=== PATIENT | female | born 1945 | race Caucasian/White ===

== ENCOUNTER 2024-03-08 19:06 | Inpatient (IN) ==
[2024-03-09 00:06] LABS: PO2 Arterial 83 mmHg (80-100)
[2024-03-09 00:08] LABS: PCO2 Arterial > 100 mmHg (35-45)
[2024-03-09] MEDS ORDERED: Rocuronium 50 mg VIAL 10 mg/ml 5 ml VIAL (50 mg) ONE (00:18)
[2024-03-09] MEDS ORDERED: Succinylcholine 200 mg VIAL 20 mg/ml 10 ml VIAL (200 mg) ONE (00:19)
[2024-03-09] MEDS ORDERED: Propofol 10 mg/ml 100 ML BTL 1,000 MG/100 ML BTL ONE (00:37)
[2024-03-09] MEDS: Propofol 10 mg/ml 100 ML BTL 1,000 MG/100 ML BTL IV SCH (00:50)
[2024-03-09] MEDS ORDERED: fentaNYL 100 mcg/2 ml 50 MCG/ML VIAL ONE (00:57)
[2024-03-09] MEDS ORDERED: Dextrose 50% Syringe 50 ml 25 GM/50 ML SYRINGE IV PUSH PRN (01:16)
[2024-03-09 01:19] LABS: Urine Benzodiazepine Screen None Detected (None Detect); Urine Cannabinoids Screen None Detected (None Detect); Urine Opiates Screen Presumptive Positive (None Detect)
[2024-03-09 01:26] LABS: Urine Appearance Clear; Urine Bilirubin Negative (Negative); Urine Blood Negative (Negative); Urine Color Yellow; Urine Glucose Negative (Negative); Urine Ketones Negative (Negative); Urine Nitrite Negative (Negative); Urine Protein 2+ (>=100 mg/dL) (Negative); Urine Specific Gravity 1.016 (1.002-1.030); Urine Urobilinogen Negative (Negative); Urine pH 5.5 (5.0-8.0)
[2024-03-09 01:36] LABS: Urine Bacteria Absent /HPF (Absent); Urine Red Blood Cell 3+(>10/hpf) /HPF (0-Trace); Urine Squamous Epithelial Cell Present /HPF (Absent); Urine White Blood Cell Trace(0-5/hpf) /HPF (0-Trace)
[2024-03-09] MEDS: fentaNYL 100 mcg/2 ml 50 MCG/ML VIAL IV SLOW PU PRN (02:29)
[2024-03-09 02:53] LABS: PCO2 Arterial 70 mmHg (35-45); PO2 Arterial 148 mmHg (80-100)
[2024-03-09] MEDS: Chlorhexidine MOUTHWASH 0.12% 15 ML UDC TOPICAL SCH (03:34)
[2024-03-09] MEDS ORDERED: Albuterol/Ipratropium NEB.SOL (2.5/0.5 MG) 3 ML NEB.SOLN INH PRN (03:35)
[2024-03-09] MEDS: Pantoprazole VIAL 40 MG VIAL IV SCH (04:49)
[2024-03-09] MEDS: Levothyroxine 100 MCG/5 ML VIAL IV SCH (04:49)
[2024-03-09 05:25] LABS: ABS Lymphocytes 1.1 10^3/uL (1.0-4.8); ABS Monocytes 0.8 10^3/uL (0.0-0.9); ABS Nucleated RBC 0.01 10^3/ul; Eosinophil % 0.1 %; Hematocrit 32.3 % (35-45); Hemoglobin 9.9 g/dL (11.5-14.3); Lymphocyte % 7.9 %; Mean Corpuscular Hemoglobin 28.6 pg (27-33); Mean Corpuscular Hgb Conc 30.8 g/dL (31-36); Mean Corpuscular Volume 92.7 fL (80-97); Mean Platelet Volume 7.6 fL (7.5-11.2); Platelet Count 262 10^3/uL (150-450); Red Blood Count 3.48 10^6/uL (3.63-4.92); Red Cell Distribution Width 15.2 % (12-17); White Blood Count 13.9 10^3/uL (3.8-11.8)
[2024-03-09 06:19] LABS: ALT 18 U/L (7-52); Albumin 3.2 g/dL (3.2-5.2); Albumin/Globulin Ratio 1.3 (1-3); Alkaline Phosphatase 61 U/L (35-149); Anion Gap 7 mmol/L (2-16); Blood Urea Nitrogen 45 mg/dL (6-24); CO2 Carbon Dioxide 35 mmol/L (22-32); Calcium 8.7 mg/dL (8.6-10.3); Chloride 102 mmol/L (101-111); Creatinine, Serum 1.97 mg/dL (0.51-0.95); Globulin 2.4 g/dL (2-4); Glucose 217 mg/dL (70-100); Magnesium 2.2 mg/dL (1.9-2.7); Sodium 144 mmol/L (135-145); Total Bilirubin 0.4 mg/dL (0.2-1.0); Total Protein 5.6 g/dL (6.4-8.9); eGFR CKD-EPI 25.7 (>60)
[2024-03-09 06:39] LABS: TSH Ultra Thyroid Stim Horm 2.61 mcIU/mL (0.34-5.60)
[2024-03-09] MEDS: Enoxaparin 40 MG/0.4 ML SYR SUBCUT SCH (09:07)
[2024-03-09] MEDS: levETIRAcetam 500 MG/100 ML IV SCH (09:08)
[2024-03-09] MEDS: Acetaminophen IV 1 GM/100ML 1,000 MG/100 ML BAG IV PRN (11:32)
[2024-03-09] MEDS: levETIRAcetam 1000MG IVPREMIX 1,000 MG/100 ML BAG IVPB ONE (14:03)
[2024-03-09 14:51] LABS: Potassium, Whole Blood 5.2 mmol/L (3.4-4.5)
[2024-03-09] MEDS: NS 0.9% 1000 ml BAG 1,000 ML IV ONE (17:24)
[2024-03-09] MEDS: levETIRAcetam IV 750 MG in NS 0.9% 100 ml BAG 100 ML IVPB SCH (20:39)
[2024-03-09] MEDS ORDERED: Enoxaparin 40 MG/0.4 ML SYR SUBCUT SCH (21:00)
[2024-03-10] MEDS: Nystatin TOP POWDER 15 GM BTL TOPICAL SCH (00:23)
[2024-03-10] MEDS: Midazolam 5 mg/5 ml VIAL 1 mg/ml 5 ml VIAL (5 mg) IV SLOW PU ONE ×2 (01:20→05:00)
[2024-03-10] MEDS: Midazolam 5 mg/5 ml VIAL 1 mg/ml 5 ml VIAL (5 mg) ONE (02:14)
[2024-03-10] MEDS: Lactated Ringers 1000 ml BAG 500 ML IV ONE (03:00)
[2024-03-10 03:52] LABS: ABS Eosinophils 0.1 10^3/uL (0.0-0.5); ABS Lymphocytes 1.4 10^3/uL (1.0-4.8); ABS Monocytes 0.8 10^3/uL (0.0-0.9); ABS Neutrophils 8.6 10^3/uL (1.5-7.6); ABS Nucleated RBC 0.01 10^3/ul; Eosinophil % 0.5 %; Hematocrit 25.3 % (35-45); Hemoglobin 8.1 g/dL (11.5-14.3); Lymphocyte % 13.3 %; Mean Corpuscular Hemoglobin 29.1 pg (27-33); Mean Corpuscular Hgb Conc 32.2 g/dL (31-36); Mean Corpuscular Volume 90.3 fL (80-97); Mean Platelet Volume 8.1 fL (7.5-11.2); Nucleated Red Blood Cells % 0.1 %/100WBC (0.0-0.8); Platelet Count 233 10^3/uL (150-450); Red Cell Distribution Width 15.3 % (12-17); White Blood Count 10.9 10^3/uL (3.8-11.8)
[2024-03-10 04:11] LABS: Albumin 2.7 g/dL (3.2-5.2); Albumin/Globulin Ratio 1.4 (1-3); Calcium 7.9 mg/dL (8.6-10.3); Creatinine, Serum 2.67 mg/dL (0.51-0.95); Globulin 1.9 g/dL (2-4); Potassium 5.3 mmol/L (3.5-5.0); Total Bilirubin 0.4 mg/dL (0.2-1.0); Total Protein 4.6 g/dL (6.4-8.9); eGFR CKD-EPI 17.9 (>60)
[2024-03-10] MEDS: Norepinephrine 4 MG/250mL D5W 4,000 MCG/250 ML BAG IV SCH (04:35)
[2024-03-10] MEDS: Norepinephrine 4 MG/250mL D5W 4,000 MCG/250 ML BAG IV ONE (04:35)
[2024-03-10] MEDS: Piperacillin/Tazobac 3.375 BAG 3.375 GM/100 ML BAG IV ONE (05:58)
[2024-03-10] MEDS ORDERED: Zosyn per Pharmacy NOTE FOLLOW UP SCH (06:00)
[2024-03-10 06:24] LABS: PCO2 Arterial 46 mmHg (35-45); PO2 Arterial 85 mmHg (80-100)
[2024-03-10] MEDS: ZOSYN 3.375 GM Q12H per EXTENDED INFUSION IV SCH (11:22)
[2024-03-10 16:25] LABS: Activated Partial Thrombo Time 30.5 seconds (26.0-38.0); INR 1.12 (0.85-1.14)
[2024-03-10 16:29] LABS: ABS Basophils 0.1 10^3/uL (0.0-0.1); ABS Eosinophils 0.1 10^3/uL (0.0-0.5); ABS Lymphocytes 1.7 10^3/uL (1.0-4.8); ABS Neutrophils 11.7 10^3/uL (1.5-7.6); ABS Nucleated RBC 0.01 10^3/ul; Eosinophil % 0.8 %; Hematocrit 25.1 % (35-45); Hemoglobin 8.1 g/dL (11.5-14.3); Lymphocyte % 11.9 %; Mean Corpuscular Hgb Conc 32.1 g/dL (31-36); Mean Corpuscular Volume 90.3 fL (80-97); Mean Platelet Volume 8.2 fL (7.5-11.2); Platelet Count 249 10^3/uL (150-450); Red Blood Count 2.78 10^6/uL (3.63-4.92); Red Cell Distribution Width 15.1 % (12-17); White Blood Count 14.6 10^3/uL (3.8-11.8)
[2024-03-10 17:07] LABS: Creatinine, Serum 2.59 mg/dL (0.51-0.95); eGFR CKD-EPI 18.5 (>60)
[2024-03-10] MEDS: levETIRAcetam 500 MG/100 ML IV SCH (17:26)
[2024-03-10] MEDS ORDERED: levETIRAcetam IV 500 MG in NS 0.9% 100 ml BAG 100 ML IVPB SCH (18:00)
[2024-03-10] MEDS: ZOSYN 3.375 GM Q8H per EXTENDED INFUSION IV SCH (19:44)
[2024-03-10] MEDS: Heparin 5000 UNITS/ML 1 mL VIAL SUBCUT SCH (21:04)
[2024-03-11 04:44] LABS: ABS Basophils 0.1 10^3/uL (0.0-0.1); ABS Eosinophils 0.3 10^3/uL (0.0-0.5); ABS Lymphocytes 1.7 10^3/uL (1.0-4.8); ABS Monocytes 0.8 10^3/uL (0.0-0.9); ABS Neutrophils 10.7 10^3/uL (1.5-7.6); Eosinophil % 1.9 %; Hematocrit 25.1 % (35-45); Hemoglobin 8.1 g/dL (11.5-14.3); Lymphocyte % 12.3 %; Mean Corpuscular Hemoglobin 29.6 pg (27-33); Mean Corpuscular Hgb Conc 32.4 g/dL (31-36); Mean Corpuscular Volume 91.4 fL (80-97); Mean Platelet Volume 7.9 fL (7.5-11.2); Platelet Count 242 10^3/uL (150-450); Red Blood Count 2.75 10^6/uL (3.63-4.92); White Blood Count 13.6 10^3/uL (3.8-11.8)
[2024-03-11 05:14] LABS: Albumin 2.6 g/dL (3.2-5.2); Albumin/Globulin Ratio 1.2 (1-3); Calcium 7.6 mg/dL (8.6-10.3); Creatinine, Serum 2.56 mg/dL (0.51-0.95); Globulin 2.1 g/dL (2-4); Potassium 4.8 mmol/L (3.5-5.0); Total Bilirubin 0.5 mg/dL (0.2-1.0); Total Protein 4.7 g/dL (6.4-8.9); eGFR CKD-EPI 18.8 (>60)
[2024-03-12] MEDS: Tiotropium Brom/Olodaterol MDI (ACUTE) INH SCH (11:31)
[2024-03-12] MEDS: cefTRIAXone 1 gm/50 mL D5W 1 GM/50 ML BAG IV SCH (16:54)
[2024-03-12 17:48] LABS: Calcium 6.9 mg/dL (8.6-10.3); Creatinine, Serum 1.81 mg/dL (0.51-0.95); Potassium 4.5 mmol/L (3.5-5.0); eGFR CKD-EPI 28.5 (>60)
[2024-03-13 08:01] LABS: ABS Basophils 0.1 10^3/uL (0.0-0.1); ABS Eosinophils 0.4 10^3/uL (0.0-0.5); ABS Lymphocytes 1.1 10^3/uL (1.0-4.8); ABS Monocytes 0.6 10^3/uL (0.0-0.9); ABS Neutrophils 7.2 10^3/uL (1.5-7.6); ABS Nucleated RBC 0.01 10^3/ul; Eosinophil % 4.6 %; Hematocrit 28.2 % (35-45); Lymphocyte % 11.4 %; Mean Corpuscular Hemoglobin 29.5 pg (27-33); Mean Corpuscular Volume 92.2 fL (80-97); Mean Platelet Volume 7.8 fL (7.5-11.2); Nucleated Red Blood Cells % 0.1 %/100WBC (0.0-0.8); Platelet Count 250 10^3/uL (150-450); Red Blood Count 3.06 10^6/uL (3.63-4.92); Red Cell Distribution Width 15.3 % (12-17); White Blood Count 9.4 10^3/uL (3.8-11.8)
[2024-03-13 08:38] LABS: Creatinine, Serum 1.88 mg/dL (0.51-0.95); Magnesium 2.2 mg/dL (1.9-2.7); Potassium 5.4 mmol/L (3.5-5.0); eGFR CKD-EPI 27.2 (>60)
[2024-03-13] MEDS: D5W 1000 ml BAG 1,000 ML IV SCH (14:33)
[2024-03-13 15:12] LABS: Ferritin 186.5 ng/mL (11-307)
[2024-03-13] MEDS: Insulin GLARGINE 100 un/ml 10 ml VIAL SUBCUT SCH (21:19)
[2024-03-14 06:39] LABS: ABS Basophils 0.1 10^3/uL (0.0-0.1); ABS Eosinophils 0.6 10^3/uL (0.0-0.5); ABS Lymphocytes 1.3 10^3/uL (1.0-4.8); ABS Monocytes 0.8 10^3/uL (0.0-0.9); ABS Neutrophils 6.3 10^3/uL (1.5-7.6); Eosinophil % 7.2 %; Hematocrit 25.7 % (35-45); Hemoglobin 8.3 g/dL (11.5-14.3); Lymphocyte % 13.9 %; Mean Corpuscular Hgb Conc 32.4 g/dL (31-36); Mean Corpuscular Volume 92.6 fL (80-97); Mean Platelet Volume 8.1 fL (7.5-11.2); Platelet Count 260 10^3/uL (150-450); Red Blood Count 2.77 10^6/uL (3.63-4.92); Red Cell Distribution Width 15.3 % (12-17)
[2024-03-14 06:52] LABS: Calcium 7.6 mg/dL (8.6-10.3); Creatinine, Serum 1.92 mg/dL (0.51-0.95); Magnesium 2.2 mg/dL (1.9-2.7); eGFR CKD-EPI 26.5 (>60)
[2024-03-14] MEDS: Furosemide 40 mg/4 ml IV VIAL IV ONE (16:47)
[2024-03-15] MEDS: Acetaminophen IV 1 GM/100ML 1,000 MG/100 ML BAG IV ONE (01:30)
[2024-03-15 06:21] LABS: ABS Basophils 0.1 10^3/uL (0.0-0.1); ABS Eosinophils 0.7 10^3/uL (0.0-0.5); ABS Lymphocytes 1.4 10^3/uL (1.0-4.8); ABS Monocytes 0.6 10^3/uL (0.0-0.9); ABS Neutrophils 5.8 10^3/uL (1.5-7.6); ABS Nucleated RBC 0.01 10^3/ul; Eosinophil % 8.2 %; Hematocrit 25.4 % (35-45); Hemoglobin 8.4 g/dL (11.5-14.3); Lymphocyte % 16.4 %; Mean Corpuscular Hgb Conc 33.1 g/dL (31-36); Mean Corpuscular Volume 90.8 fL (80-97); Mean Platelet Volume 7.9 fL (7.5-11.2); Nucleated Red Blood Cells % 0.1 %/100WBC (0.0-0.8); Platelet Count 253 10^3/uL (150-450); Red Blood Count 2.79 10^6/uL (3.63-4.92); Red Cell Distribution Width 15.1 % (12-17); White Blood Count 8.6 10^3/uL (3.8-11.8)
[2024-03-15 06:42] LABS: Calcium 7.9 mg/dL (8.6-10.3); Creatinine, Serum 1.78 mg/dL (0.51-0.95); Potassium 4.7 mmol/L (3.5-5.0)
[2024-03-15] MEDS: Sulfur Hexaflouride MICROSPHR 25 MG VIAL IV PRN (10:49)
[2024-03-15] MEDS: Furosemide 20 mg/2 ml IV VIAL IV ONE (15:48)
[2024-03-16 05:28] LABS: ABS Basophils 0.1 10^3/uL (0.0-0.1); ABS Eosinophils 0.6 10^3/uL (0.0-0.5); ABS Lymphocytes 1.5 10^3/uL (1.0-4.8); ABS Monocytes 0.6 10^3/uL (0.0-0.9); ABS Neutrophils 5.6 10^3/uL (1.5-7.6); Hematocrit 25.6 % (35-45); Hemoglobin 8.4 g/dL (11.5-14.3); Lymphocyte % 17.7 %; Mean Corpuscular Hemoglobin 29.6 pg (27-33); Mean Corpuscular Hgb Conc 32.7 g/dL (31-36); Mean Corpuscular Volume 90.5 fL (80-97); Mean Platelet Volume 7.3 fL (7.5-11.2); Platelet Count 264 10^3/uL (150-450); Red Blood Count 2.83 10^6/uL (3.63-4.92); White Blood Count 8.4 10^3/uL (3.8-11.8)
[2024-03-16 05:56] LABS: Albumin 2.5 g/dL (3.2-5.2); Albumin/Globulin Ratio 1.2 (1-3); Creatinine, Serum 1.73 mg/dL (0.51-0.95); Globulin 2.1 g/dL (2-4); Potassium 4.6 mmol/L (3.5-5.0); Total Bilirubin 0.4 mg/dL (0.2-1.0); Total Protein 4.6 g/dL (6.4-8.9); eGFR CKD-EPI 30.1 (>60)
[2024-03-16] MEDS: Albuterol 2.5mg/3 ml (0.083%) NEB.SOLN INH PRN (22:48)
[2024-03-17 09:58] VITALS: BP 141/56
== END 2024-03-17 12:45 | DRG 208 ==
LOC: ED 19:06 → MED 19:06 → EDHOLD 19:06 → ICU 22:59 → MED 23:08 → EDHOLD 03-09 00:28 → INTOOBSV 03-09 00:41 → ICU 03-09 01:46 → SUATTDRO 03-09 14:30 → MED 03-12 16:03
PROVIDERS: ADMIT Internal Medicine; ATTEND Student in an Organized Health Care Education/Training Program